=== PATIENT | female | born 1950 | race Caucasian/White ===

== ENCOUNTER → 2018-06-12 | Day surgery (SDC) | payer MEDICARE, BC ==
[~2018-06-12] MED LIST: Lactated Ringers 1,000 ML IV SCH; Propofol 200 MG/20 ML SDV IV ONE
--- NOTE | 2018-06-15 10:52 | OR ---
DATE OF OPERATION: 06/12/2018 PREOPERATIVE DIAGNOSIS: 1. GASTROESOPHAGEAL REFLUX DISEASE. 2. FOLLOWUP COLON POLYPS. POSTOPERATIVE DIAGNOSIS: 1. GASTROESOPHAGEAL REFLUX DISEASE. 2. FOLLOWUP COLON POLYPS. SURGEON: Sherif Pulliam MD PROCEDURE: 1. EGD WITH BIOPSIES X4, MEGHNA. 2. FULL-LENGTH COLONOSCOPY WITH FORCEPS POLYP REMOVAL X1. ANESTHESIA: SLAUGHTERER RELIGIOUS RITUAL. COMPLICATIONS: None. SPECIMEN: 1. Duodenal biopsy x1. 2. Antral biopsy x2. 3. Distal esophageal biopsy x2. 4. Antral MEGHNA. 5. Rectosigmoid tubular adenoma, less than 0.5 cm. FINDINGS: 1. Full-length EGD. 2. Duodenitis with healed duodenal ulcer. 3. Active antral gastritis with multiple small erosions. 4. [id number] sized hiatal hernia with spontaneous reflux. 5. Linear distal esophagitis without signs of Pillai's changes. 6. Full-length colonoscopy. 7. Mild sigmoid diverticulosis. 8. Small tubular adenoma, distal sigmoid colon. RECOMMENDATIONS: The patient should be placed on proton pump therapy and have medical followup regarding her reflux and gastritis/duodenitis. Routine followup colonoscopy in 5 years. INDICATIONS: The patient has a prior history of colon polyps. She needs a 5- year followup. Dr. Paez sent her as well for an EGD because of some reflux issues. DESCRIPTION OF PROCEDURE: The patient was prepped and draped, placed in the left lateral decubitus position. A lubricated Olympus gastroscope was inserted over a bit and advanced to cricopharyngeus and easily intubated into the esophagus. The esophageal lining was benign for most of its course. At its most distal portion, the patient has an obvious [id number] sized hiatal hernia with spontaneous GERD. There is a linear esophagitis. No signs of Pillai's changes or stricturing. Two biopsies of those areas were taken. The scope was advanced into the stomach, through the pylorus, and into the second portion of the duodenum. This was benign. The duodenal bulb shows changes of duodenitis. There is a healed duodenal ulcer. Biopsy of that was taken. The scope was brought back into the stomach and retroflexed. The upper fundus and cardia were unremarkable. Upon straightening, I could find no signs of any polyps, mass, or lesions in the stomach. The antrum diffusely has gastritis. There were 3 or 4 linear erosions near the pylorus area. Two biopsies were taken along with a CLOtest. Air was then suctioned from the stomach. The scope was removed without complication. A lubricated Olympus colonoscope was then inserted and easily advanced to the cecum. Direct visualization of the ileocecal valve and appendiceal orifice was accomplished. The bowel prep was adequate. Upon withdrawal of the scope, the ascending, transverse, and descending colons were benign. The patient had mild diverticular disease in the sigmoid without any inflammatory changes. There were no signs of any active bleeding sites, colitis, or vascular abnormalities. In the rectosigmoid junction, the patient had a small flat tubular adenoma removed in its entirety with 3 cold forceps biopsies. The rectal vault was unremarkable. Retroflexion showed no perianal lesions. Air was then suctioned, scope removed without complication. CAMACHO/GABRIEL /[id number] [facility]
== END ==
LOC: CC.SDS 08:41
PROVIDERS: ATTEND Family Medicine
DX: K21.9 Gastro-esophageal reflux disease without esophagitis (principal); Z12.11 Encounter for screening for malignant neoplasm of colon; K29.50 Unspecified chronic gastritis without bleeding; K22.10 Ulcer of esophagus without bleeding; K29.80 Duodenitis without bleeding; K44.9 Diaphragmatic hernia without obstruction or gangrene; D12.7 Benign neoplasm of rectosigmoid junction; K57.30 Diverticulosis of large intestine without perforation or abscess without bleeding; I10 Essential (primary) hypertension; E78.5 Hyperlipidemia, unspecified; F32.9 Major depressive disorder, single episode, unspecified; Z86.010 Personal history of colon polyps; Z88.5 Allergy status to narcotic agent; Z88.1 Allergy status to other antibiotic agents; Z88.0 Allergy status to penicillin; Z79.899 Other long term (current) drug therapy
CPT/HCPCS: 43239; 45380; 87081; J2704; J7120; 00813; 88305